=== PATIENT | male | born 1955 | race Caucasian/White ===

== ENCOUNTER 2016-05-14 00:34 | Emergency (ER) | payer OTHER ==
[~2016-05-14] VITALS: Ht 182.9 cm; Wt 98.9 kg
[~2016-05-14 00:34] MED LIST: AUGMENTIN 875-1 EAC1 ORAL; IBUPROFEN600 MG ORAL
[2016-05-14 00:51] VITALS: BP 156/85
[2016-05-14] MEDS ORDERED: PredniSONE 20mg tab ORAL ONE (01:00)
[2016-05-14] MEDS ORDERED: Albuterol ud Inhalation HHN ONE (01:00)
[2016-05-14] MEDS ORDERED: Ipratropium 0.02% Inh Soln 2.5ml UD HHN ONE (01:00)
[2016-05-14] MEDS ORDERED: PREDNISONE20 MG ORAL (01:11)
[2016-05-14] MEDS ORDERED: ALBUTEROL SULF8.5 GM INH (01:11)
--- NOTE | 2016-05-14 01:12 | Emergency Room Report ---
History of Present Illness General Chief Complaint: Sore Throat Source: Patient Present Illness HPI This is a 60-year-old male who had a history of asthma as a kid. He also is a smoker. He presents with chief complaint of coughing and congestion. His been ongoing for the last few days. Worse with inspiration. Denies any fever or chills. Cough is is productive of greenish sputum. He was treated for pneumonia with Augmentin by 3 weeks ago. His been getting pneumonia every year. Denies any other complaint. No chest pain or exertional component. Also complaining of sore throat. Allergies: Coded Allergies: ACETAMINOPHEN (Verified Allergy, Intermediate, 08/08/15) CLARITHROMYCIN (Verified Allergy, Unknown, 05/14/16) LEVOFLOXACIN (Verified Allergy, Unknown, 05/14/16) Patient History Past Medical History: see triage record, old chart reviewed Past Surgical History: other Pertinent Family History: none Social History: Reports: smoking Immunizations: other Reviewed Nursing Documentation: PMH: Agreed, PSxH: Agreed Nursing Documentation-PMH Hx Hypertension: Yes - HYPERLIPIDEMIA Hx Diabetes: Yes Review of Systems Constitutional: Reports: chills Eye: Reports: nose congestion ENT: Reports: throat pain Respiratory: Reports: cough, shortness of breath Cardiovascular: Denies: chest pain, palpitations Gastrointestinal: Denies: abdominal pain, diarrhea, nausea, vomiting Musculoskeletal: Denies: back pain, joint pain Skin: Denies: rash Neurological: Denies: headache, numbness Endocrine: Denies: increased thirst, increased urine Hematologic/Lymphatic: Denies: easy bruising All Other Systems: negative except mentioned in HPI Physical Exam Vital Signs Date Time Temp Pulse Resp B/P Pulse Ox O2 Delivery O2 Flow Rate FiO2 05/14/16 00:39 99.0 98 16 156/85 95 Room Air vitals with high blood pressure Sp02 EP Interpretation: reviewed, normal General Appearance: well appearing, no apparent distress, alert Head: normocephalic, atraumatic Eyes: bilateral eye EOMI, bilateral eye PERRL ENT: hearing grossly normal, normal pharynx, uvula midline - Uvula enlarge Neck: full range of motion, supple, no meningismus Respiratory: chest non-tender, wheezing - Coughing with inspiration Cardiovascular #1: regular rate, rhythm, no murmur Gastrointestinal: normal bowel sounds, non tender, no mass, no organomegaly, no bruit, non-distended Musculoskeletal: back normal, gait/station normal, normal range of motion Neurologic: alert, oriented x3 Psychiatric: mood/affect normal Skin: warm/dry Medical Decision Making Diagnostic Impression: Primary Impression: Upper respiratory infection, viral Additional Impression: Asthma exacerbation ER Course Patient with a viral illness complicated by asthma exacerbation. He felt better after breathing treatment. Symptoms consistent with viral etiology. No need for antibiotics. No evidence of ACS, PE, dissection to name a few. We'll treat as asthma. Last Vital Signs Date Time Temp Pulse Resp B/P Pulse Ox O2 Delivery O2 Flow Rate FiO2 05/14/16 00:39 99.0 98 16 156/85 95 Room Air Status: improved Disposition: HOME, SELF-CARE Condition: Stable Scripts Amoxicillin/Potassium Clav 875-125* (AUGMENTIN 875-125 TABLET*) 1 Each Tablet 1 TAB ORAL TWICE A DAY, #14 TAB Prov: TERESITA RENDON M.D. 05/14/16 Prednisone* (PREDNISONE*) 20 Mg Tablet 60 MG ORAL DAILY, #12 TAB Prov: TERESITA RENDON M.D. 05/14/16 Albuterol Sulfate* (ALBUTEROL SULFATE MDI*) 8.5 Gm Hfa.aer.ad 2 PUFF INH Q4H Y for cough/wheezing, #1 EA 0 Refills Prov: TERESITA RENDON M.D. 05/14/16 Referrals: NON PHYSICIAN (PCP) Additional Instructions: Followup with your DrLuz in 2-3 days. Return if symptom worsen. TERESITA RENDON M.D. May 14, 2016 01:12
[2016-05-14] MEDS ORDERED: AUGMENTIN 875-1 EAC1 ORAL (01:44)
[2016-05-14 01:50] VITALS: BP 156/85
== END 2016-05-14 01:50 | disposition home or self-care (01) ==
LOC: EMR 01:02
DX: J06.9 Acute upper respiratory infection, unspecified (principal); J45.901 Unspecified asthma with (acute) exacerbation; F17.200 Nicotine dependence, unspecified, uncomplicated; E11.9 Type 2 diabetes mellitus without complications; I10 Essential (primary) hypertension
CPT/HCPCS: 94640; 94664; 99284